=== PATIENT | female | born 1995 | race Caucasian/White ===

== ENCOUNTER → 2019-08-06 | Outpatient (CLI) | payer OTHER, MEDICAID | LOC: M.ULTRA 09:15 | DX: E01.0 Iodine-deficiency related diffuse (endemic) goiter (principal) ==

== ENCOUNTER → 2020-04-12 | Outpatient (CLI) | payer OTHER, MEDICAID | LOC: M.ULTRA 09:25 | PROVIDERS: ATTEND Family Medicine | DX: E01.0 Iodine-deficiency related diffuse (endemic) goiter (principal) ==

== ENCOUNTER → 2021-03-29 | Outpatient (CLI) | payer OTHER, MEDICAID | LOC: M.MRI 07:09 | PROVIDERS: ATTEND Family Medicine | DX: E06.3 Autoimmune thyroiditis (principal); M25.431 Effusion, right wrist; M25.531 Pain in right wrist; Z68.28 Body mass index [BMI] 28.0-28.9, adult; F98.8 Other specified behavioral and emotional disorders with onset usually occurring in childhood and adolescence ==